=== PATIENT | female | born 1975 | race Caucasian/White ===

== ENCOUNTER → 2016-08-09 | Outpatient (REF) | payer OTHER ==
[~2016-08-09] MED LIST: COLA100C PO; IBUP200C PO; IRON65TA PO; PERC5TAB6 PO; ZOFR4TAB3 PO; ZYRT10CA PO
== END ==
LOC: M LAB REF 10:19
PROVIDERS: ATTEND Physician Assistant Medical
DX: N39.0 Urinary tract infection, site not specified (principal)

== ENCOUNTER → 2016-11-27 | Outpatient (REF) | payer OTHER ==
[~2016-11-27] MED LIST changes: -COLA100C PO; +COLA100C3 PO
== END ==
LOC: M LAB REF 16:14
PROVIDERS: ATTEND Physician Assistant Medical
DX: R30.0 Dysuria (principal)

== ENCOUNTER → 2017-04-22 | Outpatient (REF) | payer OTHER ==
[~2017-04-22] MED LIST changes: -COLA100C3 PO; +COLA100C5 PO; -IBUP200C PO; +IBUP200C10 PO; +PERC5TAB12 PO; -PERC5TAB6 PO
== END ==
LOC: M LAB REF 09:02
PROVIDERS: ATTEND Physician Assistant
DX: N39.0 Urinary tract infection, site not specified (principal)

== ENCOUNTER → 2017-05-07 | Outpatient (CLI) | payer BC, OTHER ==
--- NOTE | 2017-05-07 16:53 | REP ---
MRA BRAIN WITHOUT CONTRAST: HISTORY: Right pulsatile tinnitus. 3D TOF MR angiography was performed at the level of the [place]. The examination is limited secondary to motion. 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 The aneurysm measures 5.7 mm in transverse by 5 mm in AP by 4 mm in cephalocaudal dimensions. The aneurysm projects posterior from the cavernous left internal carotid artery. There is no other aneurysm or arteriovenous malformation. There are no atherosclerotic lesions. Major intracranial vessels are patent. The vertebral arteries are equal in size. 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 Signed by Shaquille Maciel MD 05/07/2017 04:56 P
== END ==
LOC: M RAD 14:46
PROVIDERS: ATTEND Specialist
DX: H93.A1 Pulsatile tinnitus, right ear (principal); I72.0 Aneurysm of carotid artery

== ENCOUNTER → 2018-02-15 | Outpatient (REF) | payer OTHER ==
[2018-02-19 14:29] LABS: HPV LOW VOL RFLX Negative (Negative)
== END ==
LOC: M SFHCWAGY 11:05
DX: Z12.72 Encounter for screening for malignant neoplasm of vagina (principal)

== ENCOUNTER → 2019-05-10 | Outpatient (REF) | payer OTHER ==
[~2019-05-10] MED LIST changes: -IBUP200C10 PO; +IBUP200C25 PO; +ZOFR4TAB14 PO; -ZOFR4TAB3 PO
[2019-05-10 19:32] LABS: BACTERIA, URINE AUTO NEGATIVE (NEGATIVE); MUCUS, URINE SMALL (NEGATIVE); RBC, URINE AUTO 4 /HPF (0-3); SQUAMOUS EPITHELIAL CELL UR AU 1 /HPF (0-6); WBC, URINE AUTO 0 /HPF (0-3)
== END ==
LOC: M LAB REF 16:25
PROVIDERS: ATTEND Nurse Practitioner Family
DX: R35.0 Frequency of micturition (principal)

== ENCOUNTER → 2019-07-05 | Outpatient (CLI) | payer BC, OTHER ==
--- NOTE | 2019-07-05 08:52 | REPMRS ---
Patient History The patient states she had a clinical breast exam in 04/2019. No known family history of cancer. No Hormone Replacement Therapy Digital Woman Screen Mammo: July 05, 2019 - Exam #: [id number] Bilateral CC and MLO view(s) were taken. Technologist: Petrona Hutchins, Technologist Prior study comparison: February 15, 2018, bilateral digital woman screen mammo performed at [facility]. December 19, 2016, bilateral digital mammo screening bilat, performed at [facility]. FINDINGS: The breast tissue is heterogeneously dense. This may lower the sensitivity of mammography. There is a well-circumscribed nodular neodensity on the MLO view of the right breast superiorly 5 mm in diameter. This appears to project in the lateral aspect on the CC view. This merits further evaluation. There is a moderate amount of heterogeneously dense fibroglandular tissue which is fairly symmetric. There is no other interval development of dominant mass, architectural distortion, or grouped microcalcification typical of malignancy. There has been no other change in the appearance of the mammogram from the prior studies. 3-D tomosynthesis shows no additional findings. Assessment: BI-RADS/ACR category 0 mammogram, Incomplete: Need additional imaging evaluation and/or prior mammograms for comparison. Recommendation Ultrasound and special view mammogram of the right breast. This patient's Lifetime Breast Cancer RIsk is estimated at 10.7 %. This mammogram was interpreted with the aid of an FDA-approved computer-aided dectection system. Electronically Signed By: Herberth Garcia MD 07/05/19 0851
== END ==
LOC: M WHC 07:57
PROVIDERS: ATTEND Nurse Practitioner Family
DX: Z12.31 Encounter for screening mammogram for malignant neoplasm of breast (principal)

== ENCOUNTER → 2019-07-19 | Outpatient (CLI) | payer BC, OTHER ==
--- NOTE | 2019-07-19 11:51 | REP ---
DIAGNOSTIC MAMMOGRAM RIGHT BREAST WITH RIGHT BREAST ULTRASOUND: Diagnostic imaging of the right performed including ML and CC tomographic images as well as multiple spot compression views. Correlation made with recent mammogram of 07/05/2019, which showed a 5 mm nodular density superiorly in the right breast. Breast parenchyma is moderately dense in a heterogeneous pattern limiting the sensitivity of the mammogram. There is persistence of a 5 mm well circumscribed nodule in the region of the 12 -o'clock position right breast, best seen on the ML views. It is not well seen on the CC views. However, on the CC views posterolaterally, there appear to be two well-circumscribed nodules adjacent to one another measuring 7-8 mm. Real-time sonographic evaluation of entire upper portion of the right breast demonstrates two adjacent cysts in the region of 9-o'clock measuring 9 mm and 5 mm maximally. At 11-o'clock position, there is a cyst approximately 6 mm in diameter. There are other smaller cysts scattered throughout the upper half of the right breast. IMPRESSION: ACR 2 benign. Well circumscribed nodule in the region of 12-o'clock right breast appears to correspond to a cyst at 11-o'clock position by ultrasound and is benign. Posterolaterally on the right CC tomographic images there are two adjacent well circumscribed nodules which appear to represent cysts by ultrasound. Findings are ACR 2 benign. I would recommend a followup mammogram in 1 year. Patient letter requested is M1. Electronically Signed by Francisco Garza MD 07/20/2019 01:30 P
== END ==
LOC: M RAD 09:38
PROVIDERS: ATTEND Nurse Practitioner Family
DX: R92.2 Inconclusive mammogram (principal)

== ENCOUNTER → 2019-10-04 | Outpatient (REF) | payer OTHER ==
[2019-10-04 13:15] LABS: APPEARANCE, URINE CLEAR (CLEAR); BACTERIA, URINE AUTO 1+ (NEGATIVE); BILIRUBIN, URINE AUTO NEGATIVE (NEGATIVE); BLOOD, URINE BLOOD NEGATIVE (NEGATIVE); COLOR, URINE STRAW (YELLOW); GLUCOSE, URINE (UA) AUTO NEGATIVE (NEGATIVE); KETONE, URINE AUTO NEGATIVE (NEGATIVE); LEUKOCYTE ESTERASE, URINE AUTO NEGATIVE (NEGATIVE); NITRITE, URINE AUTO NEGATIVE (NEGATIVE); PROTEIN, URINE AUTO NEGATIVE (NEGATIVE); RBC, URINE AUTO 0 /HPF (0-3); SPECIFIC GRAVITY URINE AUTO 1.003 (1.002-1.035); SQUAMOUS EPITHELIAL CELL UR AU 2 /HPF (0-6); UROBILINOGEN, URINE AUTO 0.2 mg/dL (0.0-2.0); WBC, URINE AUTO 0 /HPF (0-3)
== END ==
LOC: M LAB REF 12:14
PROVIDERS: ATTEND Physician Assistant Medical
DX: N39.0 Urinary tract infection, site not specified (principal)

== ENCOUNTER 2020-06-09 13:06 | Emergency (ER) | payer BC, OTHER ==
[~2020-06-09] VITALS: Ht 162.6 cm; Wt 72.8 kg
[2020-06-09] MEDS ORDERED: MORPHINE 4 MG/ML 1ML VIAL/SYRINGE (J2270) IV ONE ×2 (13:45→16:45)
[2020-06-09] MEDS ORDERED: NS 1,000 ML IV ONE (13:45)
[2020-06-09] MEDS ORDERED: ONDANSETRON 4MG/2ML VIAL IV ONE (13:45)
[2020-06-09 14:12] LABS: BASO # 0.1 10^3/uL (0.0-0.2); BASO % 0.5 % (0.0-1.0); EOS % 0.1 % (0.0-3.0); HEMATOCRIT 41.9 % (36.0-47.0); HEMOGLOBIN 14.1 g/dl (12.0-15.5); LYMPH # 1.2 10^3/uL (1.5-5.0); LYMPH % 7.3 % (24.0-44.0); MEAN CORPUSCULAR HEMOGLOBIN 31.7 pg (27.0-33.0); MEAN CORPUSCULAR HGB CONC 33.7 g/dl (32.0-36.5); MEAN CORPUSCULAR VOLUME 94.2 fl (80.0-96.0); NEUTROPHILS # 14.5 10^3/uL (1.5-8.5); NEUTROPHILS % 85.6 % (36.0-66.0); PLATELET COUNT, AUTOMATED 348 10^3/uL (150-450); RED BLOOD COUNT 4.45 10^6/uL (4.00-5.40); WHITE BLOOD COUNT 16.9 10^3/uL (4.0-10.0)
[2020-06-09 14:31] LABS: ALBUMIN 4.1 GM/DL (3.2-5.2); ALT/SGPT 20 U/L (12-78); BILIRUBIN,DIRECT < 0.1 MG/DL (0.0-0.2); BILIRUBIN,TOTAL 0.3 MG/DL (0.2-1.0); BLOOD UREA NITROGEN 11 MG/DL (7-18); CALCIUM LEVEL 9.8 MG/DL (8.5-10.1); CARBON DIOXIDE LEVEL 24 MEQ/L (21-32); CHLORIDE LEVEL 108 MEQ/L (98-107); CREATININE FOR GFR 0.94 MG/DL (0.55-1.30); GLOMERULAR FILTRATION RATE > 60.0 (>58); GLUCOSE, FASTING 107 MG/DL (70-100); LIPASE 92 U/L (73-393); SODIUM LEVEL 141 MEQ/L (136-145); TOTAL PROTEIN 7.5 GM/DL (6.4-8.2)
[2020-06-09] MEDS ORDERED: ISOVUE-370 76% 100ML VIAL As Ordered ONE (14:36)
--- NOTE | 2020-06-09 15:02 | REP ---
INDICATION: abdominal pain. COMPARISON: None TECHNIQUE: Axial contrast-enhanced images from the lung bases to the pubic symphysis using 100 cc Isovue 370 intravenous contrast material. Coronal and sagittal reformations obtained. This CT examination was performed using the following dose reduction techniques: Automated exposure control, adjustment of mA and/or kv according to the patient's size, and the use of iterative reconstruction technique. FINDINGS: Liver, spleen, pancreas, gallbladder, and bilateral adrenal glands are normal. Incidental subcentimeter hypodensity in the right hepatic lobe likely represents small cyst. Bilateral renal hypodensities (right greater than left) most suggestive of benign cysts measuring up to 1.6 cm in the lower pole right kidney and 7 mm in the lower pole left kidney. The enteric system is limited in evaluation due to lack of intraluminal contrast and paucity of intraperitoneal fat. However, there is no evidence for bowel obstruction or obvious acute enteric process. The appendix is not definitively identified although no obvious CT evidence for acute appendicitis is appreciated. Pelvis demonstrates normal bladder and findings to suggest prior hysterectomy. A small to moderate amount of pelvic free fluid is noted and nonspecific. Finding may be physiologic. No free air. No adenopathy. Abdominal aorta without aneurysm or dissection. Musculoskeletal structures demonstrate degenerative changes including bilateral L5 spondylolysis without significant spondylolisthesis. IMPRESSION: 1. Small to moderate amount of free fluid in the pelvis possibly physiologic. 2. The appendix is not visualized, but no obvious CT evidence to suggest acute appendicitis is appreciated. Clinical correlation is recommended. 3. Hepatic and renal hypodensities likely representing cysts. <Electronically signed by Srinivasan Hernandez > 06/09/20 [id number]
[2020-06-09] MEDS ORDERED: KETOROLAC 30 MG/ML 1ML VIAL IV ONE (16:00)
[2020-06-09 16:44] VITALS: BP 138/87
--- NOTE | 2020-06-09 16:50 | REP ---
INDICATION: RLQ pain with pelvic FF; r/o cyst/torsion COMPARISON: None. TECHNIQUE: Transabdominal pelvic B-mode ultrasound with color Doppler evaluation of the ovaries. FINDINGS: Bladder is unremarkable and measures 10.5 x 7.1 x 8.1 cm. Patient is status post hysterectomy. No pelvic fluid or adnexal mass lesion. Bilateral ovaries are normal in vascularity without evidence for torsion. Right ovary measures 5.5 x 5.0 x 4.6 cm with 2.9 cm and 3.8 cm complex mass lesions noted; R I = 0.56. Left ovary measures 2.7 x 1.9 x 1.4 cm; R I = 0.53. IMPRESSION: 1. Status post hysterectomy. 2. Complex lesions in the right ovary possibly hemorrhagic cysts. Consider follow-up examination in 4-6 weeks to evaluate for resolution. <Electronically signed by Srinivasan Hernandez > 06/09/20 [id number]
[2020-06-09] MEDS ORDERED: PERC5TAB12 PO (17:07)
[2020-06-09] MEDS ORDERED: ONDA4TAB6 PO (17:07)
--- NOTE | 2020-06-12 17:46 | ED PDOC ---
Post-Departure Follow-Up dr naik faxed formal report of pelvic us for fu Hank Lambert MD Jun 12, 2020 17:46
== END 2020-06-09 17:42 | disposition home or self-care (01) ==
LOC: M ED 13:06
DX: N83.201 Unspecified ovarian cyst, right side (principal); K21.9 Gastro-esophageal reflux disease without esophagitis; Z79.899 Other long term (current) drug therapy
CPT/HCPCS: 36415; 74177; 76856; 80048; 80076; 81001; 83605; 83690; 85025; 96361; 96374; 96375; 96376; 99284; J1885; J2270; J2405; Q9967

== ENCOUNTER → 2020-07-25 | Outpatient (CLI) | payer BC ==
[~2020-07-25] MED LIST changes: +ONDA4TAB6 PO
--- NOTE | 2020-07-25 13:13 | REP ---
INDICATION: N83.291 COMPLEX CYST R OVARY. COMPARISON: Comparison pelvic sonography June 09, 2020. Comparison CT study June 09, 2020.. TECHNIQUE: Transabdominal and transvaginal scanning were performed. FINDINGS: The uterus is surgically absent.. No free fluid is seen. The right ovary has dimensions of 5.2 x 2.7 x 3.8 cm. It's Doppler flow is normal with a resistive index of 0.59. Two heterogeneous a complex areas in the right ovary are seen measured as follows: 3.6 x 3.1 x 2.5 cm and 1.8 x 1.8 x 1.5 cm. These are similar measurements to those reported on the previous sonogram. The left ovary dimensions are normal as well at 4.7 x 2.7 x 3.3 cm. It's Doppler flow was normal with resistive index of 0.30. There is a complex cyst containing a septation in the left ovary measuring 3.6 x 1.7 x 2.6 cm. There is a simple cyst in the right ovary consistent with a follicle cyst measuring 2.3 x 2.0 x 1.9 cm. IMPRESSION: Complex cystic lesion seen in each ovary as above. These findings are nonspecific. The largest is 3.6 cm.. <Electronically signed by Herberth Garcia > 07/25/20 [id number]
== END ==
LOC: M WHC 08:05
PROVIDERS: ATTEND Nurse Practitioner Family
DX: N83.291 Other ovarian cyst, right side (principal)

== ENCOUNTER → 2020-08-15 | Outpatient (CLI) | payer BC ==
--- NOTE | 2020-08-15 11:04 | REPMRS ---
Patient History The patient states she had a clinical breast exam in 07/2020 No known family history of cancer. No Hormone Replacement Therapy Digital Woman Screen Mammo: August 15, 2020 - Exam #: [id number] Bilateral CC and MLO view(s) were taken. Technologist: Roya Zuniga, Technologist Prior study comparison: July 19, 2019, right breast digital mammo diagnostic unilateral, performed at [facility]. July 05, 2019, bilateral digital woman screen mammo performed at [facility]. February 15, 2018, bilateral digital woman screen mammo performed at [facility]. December 19, 2016, bilateral digital mammo screening bilat, performed at [facility]. FINDINGS: The breast tissue is heterogeneously dense. This may lower the sensitivity of mammography. The Volpara volumetric breast density category is: C. There is a moderate amount of heterogeneously dense fibroglandular tissue which is fairly symmetric. There is no interval development of dominant mass, architectural distortion, or grouped microcalcification typical of malignancy. There has been no change in the appearance of the mammogram from the prior studies. 3-D tomosynthesis shows no additional findings. Assessment: BI-RADS/ACR category 1 mammogram. Negative Mammogram. Recommendation Routine screening mammogram of both breasts in 1 year (for women over age 40). This patient's [facility] Lifetime Breast Cancer RIsk is estimated at 10.6 %. This mammogram was interpreted with the aid of an FDA-approved computer-aided dectection system. Electronically Signed By: Herberth Garcia MD 08/15/20 [id number]
== END ==
LOC: M WHC 08:31
PROVIDERS: ATTEND Nurse Practitioner Family
DX: Z12.31 Encounter for screening mammogram for malignant neoplasm of breast (principal)

== ENCOUNTER → 2020-09-12 | Outpatient (CLI) | payer BC ==
--- NOTE | 2020-09-12 09:26 | REP ---
INDICATION: N83.292 LT OVARIAN CYST. COMPARISON: Comparison study July 25, 2020. Comparison CT study June 09, 2020.. TECHNIQUE: Transabdominal and transvaginal scanning were performed. FINDINGS: The uterus is surgically absent. Urinary bladder teixeira are smooth. The urinary bladder is largely empty at the time of scanning. There is a 3 mm echogenic focus at the vaginal cuff seen on transvaginal imaging. This may be postoperative. Right ovarian dimensions are 3.9 x 2.1 x 2.9 cm. Doppler flow is present resistive index 0.64. There is a heterogeneous hypoechoic solid appearing area in the right ovary measuring 2.8 x 2.5 x 1.9 cm. There is a complex nodular area in the right ovary measuring 1.2 x 1.1 x 1.1 cm. The left ovary measures 4.3 x 1.9 x 1.8 cm. Doppler flow is intact, resistive index 0.64. There is a complex septated bilobed appearing cyst in the left ovary measuring 2.3 x 1.9 x 1.9 cm. There is a 1.6 cm simple follicle cyst visible in the left ovary. No free fluid is seen. IMPRESSION: Post hysterectomy. Complex small lesions bilateral ovaries. Similar to findings from July 25, 2020.. <Electronically signed by Herberth Garcia > 09/12/20 1346
== END ==
LOC: M WHC 08:04
PROVIDERS: ATTEND Nurse Practitioner Family
DX: N83.292 Other ovarian cyst, left side (principal); N83.291 Other ovarian cyst, right side

== ENCOUNTER → 2020-11-14 | Outpatient (CLI) | payer BC ==
--- NOTE | 2020-11-14 10:38 | REP ---
INDICATION: N83.202 LT OVARIAN CYST COMPARISON: 09/12/2020 TECHNIQUE: Transabdominal pelvic ultrasound followed by transvaginal examination for better evaluation of the endometrium and adnexa with color Doppler evaluation of the ovaries. FINDINGS: Bladder is unremarkable and measures 11.8 x 8.8 x 9.4 cm. Evidence for prior partial hysterectomy. Left ovary is not visualized on either transabdominal or transvaginal imaging. Right ovary measures 7.1 x 4.1 x 5.9 cm (RI 0.59) and includes 5.4 x 3.7 x 5.9 cm complex masslike lesion and 1.7 x 2.3 x 2.3 cm complex hemorrhagic cyst. 2.0 x 1.4 x 1.7 cm hyperechoic mass in the right adnexa is also identified. Along with small amount of pelvic fluid. IMPRESSION: The largest lesion in the right ovary is increased in size. The other lesions are relatively similar when allowing for variation in technique. While these findings likely represent physiologic change, pelvic MRI may be warranted for more definitive evaluation and confirmation. <Electronically signed by Srinivasan Hernandez > 11/14/20 1038
== END ==
LOC: M WHC 07:56
PROVIDERS: ATTEND Nurse Practitioner Family
DX: N83.202 Unspecified ovarian cyst, left side (principal)

== ENCOUNTER → 2020-11-30 | Outpatient (REF) | payer OTHER ==
[2020-11-30 16:16] LABS: CA 125 6.1 U/ML (<30.2); CA19-9 TUMOR MARKER,CARBOHYDRA 6.9 U/ML (<35.0)
== END ==
LOC: M PLALAB 12:35
PROVIDERS: ATTEND Specialist
DX: N83.209 Unspecified ovarian cyst, unspecified side (principal)

== ENCOUNTER → 2021-01-09 | Outpatient (CLI) | payer BC ==
--- NOTE | 2021-01-09 11:34 | REP ---
INDICATION: N83.209 OVARIAN CYST. COMPARISON: Comparison CT study abdomen and pelvis June 09, 2020. Comparison sonography November 14, 2020. Status post partial hysterectomy.. TECHNIQUE: Transabdominal and transvaginal scanning were performed. FINDINGS: Some free cul-de-sac fluid is seen around the left ovary. Visualized bladder teixeira are smooth. Exam quality is inhibited some degree by patient body habitus. The right ovary has dimensions of 2.0 x 1.8 x 1.6 cm. It's Doppler flow is normal with a resistive index of 0.69. There is a hypoechoic cyst adjacent to the right ovary measuring 1.2 x 1.4 x 1.5 cm. The left ovary dimensions are normal as well at 6.6 x 3.0 x 3.3 cm. It's Doppler flow was normal with resistive index of 0.45. The left ovary contains a complex cystic area measuring 3.1 x 2.6 x 3.3 cm. In addition there is a septated cyst in the left adnexa measuring 3.5 x 2.2 x 3.1 cm. IMPRESSION: Post hysterectomy. Complex cysts left ovary as described above.. <Electronically signed by Herberth Garcia > 01/09/21 [id number]
== END ==
LOC: M WHC 09:54
PROVIDERS: ATTEND Specialist
DX: N83.209 Unspecified ovarian cyst, unspecified side (principal)

== ENCOUNTER → 2021-02-14 | Outpatient (REF) | payer BC ==
[2021-02-14 12:17] LABS: APPEARANCE, URINE CLEAR (CLEAR); BACTERIA, URINE AUTO NEGATIVE (NEGATIVE); BILIRUBIN, URINE AUTO NEGATIVE (NEGATIVE); BLOOD, URINE BLOOD 1+ (NEGATIVE); COLOR, URINE STRAW (YELLOW); GLUCOSE, URINE (UA) AUTO NEGATIVE (NEGATIVE); KETONE, URINE AUTO NEGATIVE (NEGATIVE); LEUKOCYTE ESTERASE, URINE AUTO 3+ (NEGATIVE); NITRITE, URINE AUTO NEGATIVE (NEGATIVE); PROTEIN, URINE AUTO NEGATIVE (NEGATIVE); RBC, URINE AUTO 1 /HPF (0-3); SPECIFIC GRAVITY URINE AUTO 1.002 (1.002-1.035); SQUAMOUS EPITHELIAL CELL UR AU 1 /HPF (0-6); UROBILINOGEN, URINE AUTO 0.2 mg/dL (0.0-2.0); WBC, URINE AUTO 17 /HPF (0-3)
== END ==
LOC: M LAB REF 11:09
PROVIDERS: ATTEND Physician Assistant Medical
DX: N39.0 Urinary tract infection, site not specified (principal)

== ENCOUNTER → 2021-10-11 | Outpatient (CLI) | payer BC, OTHER | LOC: M WHC 09:01 | PROVIDERS: ATTEND Registered Nurse | DX: Z12.31 Encounter for screening mammogram for malignant neoplasm of breast (principal) ==

== ENCOUNTER → 2021-11-22 | Outpatient (CLI) | payer BC, OTHER | LOC: M WHC 10:46 | PROVIDERS: ATTEND Obstetrics & Gynecology | DX: N83.201 Unspecified ovarian cyst, right side (principal); N83.202 Unspecified ovarian cyst, left side; Z90.79 Acquired absence of other genital organ(s) ==

== ENCOUNTER → 2022-03-01 | Outpatient (REF) | payer BC, OTHER ==
[2022-03-01 19:09] LABS: APPEARANCE, URINE MANUAL CLOUDY (CLEAR); COLOR, URINE MANUAL BROWN (YELLOW)
[2022-03-01 19:10] LABS: BILIRUBIN, URINE MANUAL NEGATIVE (NEGATIVE); BLOOD URINE MANUAL POSITIVE (NEGATIVE); GLUCOSE, URINE (UA) MANUAL NEGATIVE (NEGATIVE); KETONE, URINE MANUAL NEGATIVE (NEGATIVE); LEUKOCYTE ESTERASE, URINE MAN POSITIVE (NEGATIVE); NITRITE, URINE MANUAL NEGATIVE (NEGATIVE); PROTEIN, URINE MANUAL 2+ mg/dL (NEGATIVE); UROBILINOGEN, URINE MANUAL NORMAL (NORMAL)
[2022-03-01 19:22] LABS: RBC, URINE TNTC /hpf (0-3); WBC, URINE TNTC /hpf (0-3)
[2022-03-01 19:23] LABS: BACTERIA, URINE MOD AMOUNT; HYALINE CAST, URINE NONE SEEN /lpf (0-1); SQUAMOUS EPITHELIAL CELL URINE SMALL AMOUNT /hpf (SMALL AMT)
== END ==
LOC: M LAB REF 18:59
PROVIDERS: ATTEND Physician Assistant
DX: N39.0 Urinary tract infection, site not specified (principal)

== ENCOUNTER → 2022-04-23 | Outpatient (REF) | payer OTHER, BC ==
[2022-04-23 12:58] LABS: APPEARANCE, URINE MANUAL CLEAR (CLEAR); BILIRUBIN, URINE MANUAL NEGATIVE (NEGATIVE); COLOR, URINE MANUAL LT YELLOW (YELLOW); GLUCOSE, URINE (UA) MANUAL NEGATIVE (NEGATIVE); KETONE, URINE MANUAL NEGATIVE (NEGATIVE); LEUKOCYTE ESTERASE, URINE MAN NEGATIVE (NEGATIVE); NITRITE, URINE MANUAL NEGATIVE (NEGATIVE); PH,URINE MAN 6.5 UNITS (5.0 - 7.0); PROTEIN, URINE MANUAL NEGATIVE (NEGATIVE); SPECIFIC GRAVITY,URINE MANUAL 1.015 (1.002-1.035); UROBILINOGEN, URINE MANUAL NORMAL (NORMAL)
[2022-04-23 12:59] LABS: BLOOD URINE MANUAL TRACE (NEGATIVE)
[2022-04-23 13:19] LABS: BACTERIA, URINE SMALL AMOUNT; HYALINE CAST, URINE NONE SEEN /lpf (0-1); RBC, URINE 0-1 /hpf (0-3); SQUAMOUS EPITHELIAL CELL URINE SMALL AMOUNT /hpf (SMALL AMT); WBC, URINE 0-1 /hpf (0-3)
== END ==
LOC: M LAB REF 12:11
PROVIDERS: ATTEND Physician Assistant
DX: N39.0 Urinary tract infection, site not specified (principal)

== ENCOUNTER 2022-10-03 11:10 | Day surgery (SDC) | payer BC, OTHER ==
[~2022-10-03] VITALS: Ht 167.6 cm; Wt 72.9 kg
[~2022-10-03 11:10] MED LIST changes: +ASPI81CH33 PO; +CETI10CH PO; +OMEP-173 PO
[2022-10-03] MEDS: NS 1,000 ML IV ONE (12:03)
[2022-10-03] MEDS ORDERED: propofoL 200 MG/20 ML VIAL As Ordered ONE ×3 (12:56→13:13)
[2022-10-03 14:00] VITALS: BP 158/85
== END 2022-10-03 14:16 | disposition home or self-care (01) ==
LOC: M OPP 11:10
PROVIDERS: ATTEND Internal Medicine Gastroenterology
DX: R14.0 Abdominal distension (gaseous) (principal); R10.13 Epigastric pain; Z98.890 Other specified postprocedural states; R19.4 Change in bowel habit

== ENCOUNTER → 2022-11-25 | Outpatient (CLI) | payer BC, OTHER | LOC: M WHC 14:30 | PROVIDERS: ATTEND Obstetrics & Gynecology | DX: Z12.31 Encounter for screening mammogram for malignant neoplasm of breast (principal) ==

== ENCOUNTER 2022-12-28 01:02 | Emergency (ER) | payer BC, OTHER ==
[~2022-12-28] VITALS: Ht 167.6 cm; Wt 76.1 kg
[2022-12-28 07:29] LABS: HEMATOCRIT 42.1 % (36.0-47.0); HEMOGLOBIN 13.5 g/dl (12.0-15.5); MEAN CORPUSCULAR HEMOGLOBIN 30.6 pg (27.0-33.0); MEAN CORPUSCULAR HGB CONC 32.1 g/dl (32.0-36.5); MEAN CORPUSCULAR VOLUME 95.5 fl (80.0-96.0); PLATELET COUNT, AUTOMATED 341 10^3/uL (150-450); RED BLOOD COUNT 4.41 10^6/uL (4.00-5.40); WHITE BLOOD COUNT 13.7 10^3/uL (4.0-10.0)
[2022-12-28] MEDS ORDERED: ISOVUE-370 76% 100ML VIAL As Ordered ONE (07:37)
[2022-12-28] MEDS ORDERED: KETOROLAC 30 MG/ML 1ML VIAL IV ONE (07:40)
[2022-12-28] MEDS ORDERED: HYDR-3713 PO (08:47)
[2022-12-28 08:58] VITALS: BP 141/85; TEMP 99.5; O2SAT 98
== END 2022-12-28 09:26 | disposition home or self-care (01) ==
LOC: M ED 01:02
DX: S22.41XA Multiple fractures of ribs, right side, initial encounter for closed fracture (principal); S30.1XXA Contusion of abdominal wall, initial encounter; K21.9 Gastro-esophageal reflux disease without esophagitis; F10.10 Alcohol abuse, uncomplicated; Y93.68 Activity, volleyball (beach) (court); Z79.1 Long term (current) use of non-steroidal anti-inflammatories (NSAID); Z79.899 Other long term (current) drug therapy
CPT/HCPCS: 71101; 74177; 80047; 85027; 96374; 99284; J1885; Q9967

== ENCOUNTER → 2023-04-10 | Outpatient (REF) | payer OTHER ==
[~2023-04-10] MED LIST changes: +HYDR-3713 PO
[2023-04-10 14:00] LABS: APPEARANCE, URINE CLEAR (CLEAR); BACTERIA, URINE AUTO NEGATIVE (NEGATIVE); BILIRUBIN, URINE AUTO NEGATIVE (NEGATIVE); BLOOD, URINE BLOOD NEGATIVE (NEGATIVE); COLOR, URINE AMBER (YELLOW); GLUCOSE, URINE (UA) AUTO NEGATIVE (NEGATIVE); KETONE, URINE AUTO TRACE mg/dL (NEGATIVE); LEUKOCYTE ESTERASE, URINE AUTO NEGATIVE (NEGATIVE); MUCUS, URINE SMALL (NEGATIVE); NITRITE, URINE AUTO POSITIVE (NEGATIVE); PROTEIN, URINE AUTO NEGATIVE (NEGATIVE); RBC, URINE AUTO 5 /HPF (0-3); SPECIFIC GRAVITY URINE AUTO 1.021 (1.002-1.035); SQUAMOUS EPITHELIAL CELL UR AU 4 /HPF (0-6); WBC, URINE AUTO 1 /HPF (0-3)
== END ==
LOC: M LAB REF 12:11
PROVIDERS: ATTEND Physician Assistant Medical
DX: N39.0 Urinary tract infection, site not specified (principal)

== ENCOUNTER → 2024-03-14 | Outpatient (REF) | payer OTHER ==
[~2024-03-14] MED LIST changes: +ONDA-282 PO; -ONDA4TAB6 PO
[2024-03-14 17:10] LABS: APPEARANCE, URINE HAZY (CLEAR); BACTERIA, URINE AUTO 1+ (NEGATIVE); BILIRUBIN, URINE AUTO NEGATIVE (NEGATIVE); BLOOD, URINE BLOOD 3+ (NEGATIVE); COLOR, URINE YELLOW (YELLOW); GLUCOSE, URINE (UA) AUTO NEGATIVE (NEGATIVE); KETONE, URINE AUTO NEGATIVE (NEGATIVE); LEUKOCYTE ESTERASE, URINE AUTO 3+ (NEGATIVE); NITRITE, URINE AUTO NEGATIVE (NEGATIVE); PROTEIN, URINE AUTO NEGATIVE (NEGATIVE); RBC, URINE AUTO 7 /HPF (0-3); SPECIFIC GRAVITY URINE AUTO 1.004 (1.002-1.035); SQUAMOUS EPITHELIAL CELL UR AU 0 /HPF (0-6); UROBILINOGEN, URINE AUTO 0.2 mg/dL (0.0-2.0); WBC, URINE AUTO 26 /HPF (0-3)
== END ==
LOC: M LAB REF 16:26
PROVIDERS: ATTEND Physician Assistant
DX: N39.0 Urinary tract infection, site not specified (principal)

== ENCOUNTER → 2024-06-23 | Outpatient (CLI) | payer BC | LOC: M RAD 15:20 | PROVIDERS: ATTEND Internal Medicine | DX: I67.1 Cerebral aneurysm, nonruptured (principal) ==

== ENCOUNTER → 2024-07-01 | Outpatient (CLI) | payer BC | LOC: M WHC 13:32 | PROVIDERS: ATTEND Obstetrics & Gynecology | DX: Z12.31 Encounter for screening mammogram for malignant neoplasm of breast (principal) ==

== ENCOUNTER → 2024-07-26 | Outpatient (REF) | payer BC ==
[2024-07-26 17:42] LABS: RSV AMPLIFICATION NEGATIVE (NEGATIVE)
== END ==
LOC: M LAB REF 16:27
PROVIDERS: ATTEND Internal Medicine
DX: R05.9 Cough, unspecified (principal)

== ENCOUNTER → 2024-08-04 | Outpatient (REF) | payer BC ==
[2024-08-04 21:33] LABS: APPEARANCE, URINE CLEAR (CLEAR); BACTERIA, URINE AUTO NEGATIVE (NEGATIVE); BILIRUBIN, URINE AUTO NEGATIVE (NEGATIVE); BLOOD, URINE BLOOD NEGATIVE (NEGATIVE); COLOR, URINE YELLOW (YELLOW); GLUCOSE, URINE (UA) AUTO NEGATIVE (NEGATIVE); KETONE, URINE AUTO NEGATIVE (NEGATIVE); LEUKOCYTE ESTERASE, URINE AUTO NEGATIVE (NEGATIVE); MUCUS, URINE SMALL (NEGATIVE); NITRITE, URINE AUTO NEGATIVE (NEGATIVE); PROTEIN, URINE AUTO NEGATIVE (NEGATIVE); RBC, URINE AUTO 1 /HPF (0-3); SPECIFIC GRAVITY URINE AUTO 1.012 (1.002-1.035); SQUAMOUS EPITHELIAL CELL UR AU 1 /HPF (0-6); UROBILINOGEN, URINE AUTO 0.2 mg/dL (0.0-2.0); WBC, URINE AUTO 0 /HPF (0-3)
== END ==
LOC: M LAB REF 21:02
PROVIDERS: ATTEND Physician Assistant
DX: N39.0 Urinary tract infection, site not specified (principal)

== ENCOUNTER → 2025-02-03 | Outpatient (REF) | payer BC ==
[2025-02-03 21:04] LABS: APPEARANCE, URINE CLEAR (CLEAR); BACTERIA, URINE AUTO NEGATIVE (NEGATIVE); BILIRUBIN, URINE AUTO NEGATIVE (NEGATIVE); BLOOD, URINE BLOOD NEGATIVE (NEGATIVE); GLUCOSE, URINE (UA) AUTO NEGATIVE (NEGATIVE); KETONE, URINE AUTO NEGATIVE (NEGATIVE); LEUKOCYTE ESTERASE, URINE AUTO NEGATIVE (NEGATIVE); NITRITE, URINE AUTO NEGATIVE (NEGATIVE); PROTEIN, URINE AUTO NEGATIVE (NEGATIVE); RBC, URINE AUTO 1 /HPF (0-3); SPECIFIC GRAVITY URINE AUTO 1.006 (1.002-1.035); SQUAMOUS EPITHELIAL CELL UR AU 1 /HPF (0-6); UROBILINOGEN, URINE AUTO 0.2 mg/dL (0.0-2.0); WBC, URINE AUTO 0 /HPF (0-3)
== END ==
LOC: M LAB REF 20:10
PROVIDERS: ATTEND Physician Assistant
DX: N39.0 Urinary tract infection, site not specified (principal)

== ENCOUNTER → 2025-02-13 | Outpatient (REF) | payer BC ==
[2025-02-13 18:05] LABS: APPEARANCE, URINE CLEAR (CLEAR); BACTERIA, URINE AUTO NEGATIVE (NEGATIVE); BILIRUBIN, URINE AUTO NEGATIVE (NEGATIVE); BLOOD, URINE BLOOD NEGATIVE (NEGATIVE); GLUCOSE, URINE (UA) AUTO NEGATIVE (NEGATIVE); KETONE, URINE AUTO TRACE mg/dL (NEGATIVE); LEUKOCYTE ESTERASE, URINE AUTO NEGATIVE (NEGATIVE); MUCUS, URINE SMALL (NEGATIVE); NITRITE, URINE AUTO NEGATIVE (NEGATIVE); PROTEIN, URINE AUTO NEGATIVE (NEGATIVE); RBC, URINE AUTO 3 /HPF (0-3); SPECIFIC GRAVITY URINE AUTO 1.017 (1.002-1.035); SQUAMOUS EPITHELIAL CELL UR AU 3 /HPF (0-6); UROBILINOGEN, URINE AUTO 0.2 mg/dL (0.0-2.0); WBC, URINE AUTO 0 /HPF (0-3)
== END ==
LOC: M LAB REF 17:06
PROVIDERS: ATTEND Physician Assistant Medical
DX: N39.0 Urinary tract infection, site not specified (principal)